=== PATIENT | female | born 1990 | race American Indian/Alaskan Native ===

== ENCOUNTER 2017-01-16 00:27 | Emergency (ER) | payer MEDICAID ==
[2017-01-16 03:59] LABS: Anion Gap 22 mmol/L; BUN/Creatinine Ratio 11.25; Blood Urea Nitrogen 9 mg/dL (7-17); Calcium 9.6 mg/dL (8.4-10.2); Carbon Dioxide 22 mmol/L (22-30); Chloride 104.1 mmol/L (98-107); Glucose 103 mg/dL (65-100); Potassium 4.1 mmol/L (3.6-5.0); Sodium 144 mmol/L (137-145)
[2017-01-16 04:00] LABS: Basophils % (Auto) 1.3 % (0.0-1.8); Hematocrit 42.2 % (30.3-42.9); Hemoglobin 13.8 gm/dl (10.1-14.3); Mean Corpuscular HGB Conc 33 % (30-34); Mean Corpuscular Hemoglobin 29 pg (28-32); Mean Corpuscular Volume 89 fl (79-97); Platelet Count 416 K/mm3 (140-440); Red Blood Count 4.74 M/mm3 (3.65-5.03); White Blood Count 12.6 K/mm3 (4.5-11.0)
[2017-01-16 08:43] LABS: Bacteria,Urine 1+ /HPF (Negative); Bilirubin,Urine NEG (Negative); Blood,Urine SM (Negative); Ketones,Urine NEG (Negative); Leukocyte Esterase,Urine NEG (Negative); Mucus,Urine 3+ /HPF; Nitrite,Urine NEG (Negative); Protein,Urine <15 mg/dL mg/dL (Negative); Urobilinogen,Urine < 2.0 mg/dL (<2.0)
[2017-01-16] MEDS ORDERED: ATIVAN IV ONE ×2 (10:27→11:38)
[2017-01-16] MEDS ORDERED: NACL 0.9% 1000 ML 1,000 ML IV ONE (10:28)
[2017-01-16] MEDS ORDERED: TORADOL IV ONE (10:28)
[2017-01-16] MEDS ORDERED: PHENERGAN PR ONE (10:29)
[2017-01-16] MEDS ORDERED: DILAUDID IV ONE (11:38)
--- NOTE | 2017-01-16 11:48 | Emergency Department Report ---
ED Anxiety HPI - General Chief Complaint: Abdominal Pain Stated Complaint: ANIXETY, VOMITING, HEADACHE Time Seen by Provider: 01/16/17 10:18 Source: patient Mode of arrival: Ambulatory Limitations: No Limitations - History of Present Illness Initial Comments: 26 year old female with a past medical history GERD, bipolar, and anxiety presents to the hospital with complaints of nausea, vomiting, headache 2 days. Patient has been out of her Seroquel and Xanax for the past 4 days. Patient is visiting from [place] because her father is admitted to the hospital. It is time for a refill in her meds however, the pharmacies in [place] would not honor her [place] Medicaid insurance and will not fill her prescription. Her brother is going to bring her Seroquel prescription to her however, not her Xanax because he needs to be picked up from the pharmacy. Patient's having symptoms of a frontal headache that is constant. Moderate to severe in intensity, repeated episodes of nausea and vomiting estimated at greater than 50 episodes in the last 2 days, episodes of shortness of breath/tachypnea with associated tingling to her hands which is typical of her anxiety attacks. No complaints of chest pain, abdominal pain, diarrhea, or fever. Patient has been on Xanax 1 mg twice a day with 2 mg daily at bedtime and Seroquel XL 300 every morning and Seroquel 300 every at bedtime for greater than one year. Patient has never had a discontinuation in her treatment has never experienced withdrawal symptoms - Related Data Home Medications: Previous Rx's Medication Instructions Recorded Last Taken Type ALPRAZolam [Xanax TAB] 1 mg PO BID #28 tab 01/16/17 Unknown Rx HYDROcodone/APAP 5-325 [[place] 1 each PO Q6HR PRN #20 tablet 01/16/17 Unknown Rx 5/325] Promethazine [Phenergan TAB] 25 mg PO Q6HR PRN #30 tab 01/16/17 Unknown Rx Quetiapine Fumarate [SEROquel XR] 300 mg PO QAM #30 tab.er.24h 01/16/17 Unknown Rx Quetiapine Fumarate [Seroquel] 300 mg PO QHS #30 01/16/17 Unknown Rx Allergies/Adverse Reactions: Allergies Allergy/AdvReac Type Severity Reaction Status Date / Time erythromycin base Allergy Angioedema Verified 01/16/17 01:56 morphine Allergy Angioedema Verified 01/16/17 01:57 ondansetron HCl Allergy Angioedema Verified 01/16/17 01:57 [From Zofran (as hydrochloride)] Penicillins Allergy Angioedema Verified 01/16/17 01:57 ED Review of Systems ROS: Stated complaint: ANIXETY, VOMITING, HEADACHE Other details as noted in HPI Comment: All other systems reviewed and negative Other: Constitutional: No fevers chills Eyes: No eye pain visual changes ENT: No ear pain or throat pain Neck: Denies pain Respiratory: Denies cough wheezing Cardiovascular: Denies chest pain GI: Denies abdominal pain : Denies dysuria Musculoskeletal: Denies back pain Skin: Denies rash, lesions, erythema Neurologic: + headache Psychiatric: Denies suicidal ideation, hallucinations ED Past Medical Hx - Past Medical History Previous Medical History?: Yes Hx GERD: Yes Hx Psychiatric Treatment: Yes (Anxiety, panic attack, Bipolar) Additional medical history: Tachycardia, major anxiety, depression, panic attacks, Bipolar - Surgical History Additional Surgical History: C section 2011 - Social History Smoking Status: Unknown if ever smoked Substance Use Type: None - Medications Home Medications: Home Medications Medication Instructions Recorded Confirmed Last Taken Type ALPRAZolam [Xanax TAB] 1 mg PO BID #28 tab 01/16/17 Unknown Rx HYDROcodone/APAP 5-325 [[place] 1 each PO Q6HR PRN #20 tablet 01/16/17 Unknown Rx 5/325] Promethazine [Phenergan TAB] 25 mg PO Q6HR PRN #30 tab 01/16/17 Unknown Rx Quetiapine Fumarate [SEROquel XR] 300 mg PO QAM #30 tab.er.24h 01/16/17 Unknown Rx Quetiapine Fumarate [Seroquel] 300 mg PO QHS #30 01/16/17 Unknown Rx ED Physical Exam - General Limitations: No Limitations - Other Other exam information: General: No limitations, patient is alert in no acute distress Head exam: Atraumatic, normocephalic Eyes exam: Normal appearance ENT: Moist mucous membrane, normal oropharynx Neck exam: Normal inspection, full range of motion Respiratory exam: Clear to auscultation bilateral, no wheezes, rales, crackles Cardiovascular: Normal rate and rhythm Abdomen: Soft, nondistended, and nontender, with normal bowel sounds, no rebound, or guarding Extremity: Full range of motion normal inspection no deformity Back: Normal Inspection, full range of motion, no tenderness Neurologic: Alert, oriented x3, cranial nerves intact, no motor or sensory deficit Psychiatric: Anxious Skin: Warm, dry, intact ED Course Vital Signs 01/16/17 01/16/17 01/16/17 02:02 05:25 08:12 Temperature 98.3 F 98.1 F 98.4 F Pulse Rate 82 85 77 Respiratory 18 16 18 Rate Blood Pressure 146/95 148/96 Blood Pressure 129/96 [Right] O2 Sat by Pulse 99 96 99 Oximetry 01/16/17 01/16/17 01/16/17 09:04 09:31 10:00 Temperature Pulse Rate 85 Respiratory 19 20 Rate Blood Pressure 129/83 Blood Pressure [Right] O2 Sat by Pulse 95 100 Oximetry 01/16/17 01/16/17 01/16/17 10:01 10:31 11:01 Temperature Pulse Rate 88 78 92 H Respiratory 18 12 15 Rate Blood Pressure 129/83 129/83 114/71 Blood Pressure [Right] O2 Sat by Pulse 100 97 Oximetry 01/16/17 01/16/17 01/16/17 11:31 11:45 12:08 Temperature Pulse Rate 96 H 106 H Respiratory 31 H 20 18 Rate Blood Pressure 109/79 118/83 Blood Pressure [Right] O2 Sat by Pulse 100 Oximetry 01/16/17 01/16/17 01/16/17 12:30 13:00 13:30 Temperature Pulse Rate 104 H 99 H 136 H Respiratory 15 15 17 Rate Blood Pressure 117/82 122/86 129/95 Blood Pressure [Right] O2 Sat by Pulse 84 Oximetry - Reevaluation(s) Reevaluation #1: 01/16/17 11:58 Patient received Ativan, Phenergan, Toradol to take complained of feeling anxious and headache. Dilaudid and additional Ativan ordered 01/16/17 14:30 Patient received additional Benadryl for continued headache and symptoms have now improved Reevaluation #2: 01/16/17 14:30 Patient reports feeling better with the treatment. ED Medical Decision Making - Lab Data Result diagrams: 01/16/17 03:14 01/16/17 03:14 Lab Results 01/16/17 01/16/17 01/16/17 Range/Units 03:14 03:14 07:52 WBC 12.6 H (4.5-11.0) K/mm3 RBC 4.74 (3.65-5.03) M/mm3 Hgb 13.8 (10.1-14.3) gm/dl Hct 42.2 (30.3-42.9) % MCV 89 (79-97) fl MCH 29 (28-32) pg MCHC 33 (30-34) % RDW 15.0 (13.2-15.2) % Plt Count 416 (140-440) K/mm3 Lymph % (Auto) 22.7 (13.4-35.0) % [place] % (Auto) 5.8 (0.0-7.3) % Eos % (Auto) 1.0 (0.0-4.3) % Baso % (Auto) 1.3 (0.0-1.8) % Lymph # 2.9 (1.2-5.4) K/mm3 [place] # 0.7 (0.0-0.8) K/mm3 Eos # 0.1 (0.0-0.4) K/mm3 Baso # 0.2 H (0.0-0.1) K/mm3 Seg Neutrophils % 69.2 (40.0-70.0) % Seg Neutrophils # 8.7 H (1.8-7.7) K/mm3 Sodium 144 (137-145) mmol/L Potassium 4.1 (3.6-5.0) mmol/L Chloride 104.1 (98-107) mmol/L Carbon Dioxide 22 (22-30) mmol/L Anion Gap 22 mmol/L BUN 9 (7-17) mg/dL Creatinine 0.8 (0.7-1.2) mg/dL Estimated GFR > 60 ml/min BUN/Creatinine Ratio 11.25 % Glucose 103 H (65-100) mg/dL Calcium 9.6 (8.4-10.2) mg/dL Urine Color Yellow (Yellow) Urine Turbidity Clear (Clear) Urine pH 5.0 (5.0-7.0) Ur Specific [place] 1.026 (1.003-1.030) Urine Protein <15 mg/dl (Negative) mg/dL Urine Glucose (UA) Neg (Negative) mg/dL Urine Ketones Neg (Negative) mg/dL Urine Blood Sm (Negative) Urine Nitrite Neg (Negative) Urine Bilirubin Neg (Negative) Urine Urobilinogen < 2.0 (<2.0) mg/dL Ur Leukocyte Esterase Neg (Negative) Urine WBC (Auto) 1.0 (0.0-6.0) /HPF Urine RBC (Auto) 4.0 (0.0-6.0) /HPF U Epithel Cells (Auto) 1.0 (0-13.0) /HPF Urine Bacteria (Auto) 1+ (Negative) /HPF Urine Mucus 3+ /HPF Urine HCG, Qual (Negative) 01/16/17 Range/Units 11:47 WBC (4.5-11.0) K/mm3 RBC (3.65-5.03) M/mm3 Hgb (10.1-14.3) gm/dl Hct (30.3-42.9) % MCV (79-97) fl MCH (28-32) pg MCHC (30-34) % RDW (13.2-15.2) % Plt Count (140-440) K/mm3 Lymph % (Auto) (13.4-35.0) % [place] % (Auto) (0.0-7.3) % Eos % (Auto) (0.0-4.3) % Baso % (Auto) (0.0-1.8) % Lymph # (1.2-5.4) K/mm3 [place] # (0.0-0.8) K/mm3 Eos # (0.0-0.4) K/mm3 Baso # (0.0-0.1) K/mm3 Seg Neutrophils % (40.0-70.0) % Seg Neutrophils # (1.8-7.7) K/mm3 Sodium (137-145) mmol/L Potassium (3.6-5.0) mmol/L Chloride (98-107) mmol/L Carbon Dioxide (22-30) mmol/L Anion Gap mmol/L BUN (7-17) mg/dL Creatinine (0.7-1.2) mg/dL Estimated GFR ml/min BUN/Creatinine Ratio % Glucose (65-100) mg/dL Calcium (8.4-10.2) mg/dL Urine Color (Yellow) Urine Turbidity (Clear) Urine pH (5.0-7.0) Ur Specific [place] (1.003-1.030) Urine Protein (Negative) mg/dL Urine Glucose (UA) (Negative) mg/dL Urine Ketones (Negative) mg/dL Urine Blood (Negative) Urine Nitrite (Negative) Urine Bilirubin (Negative) Urine Urobilinogen (<2.0) mg/dL Ur Leukocyte Esterase (Negative) Urine WBC (Auto) (0.0-6.0) /HPF Urine RBC (Auto) (0.0-6.0) /HPF U Epithel Cells (Auto) (0-13.0) /HPF Urine Bacteria (Auto) (Negative) /HPF Urine Mucus /HPF Urine HCG, Qual Negative (Negative) - Radiology Data Radiology results: report reviewed (Ct head: naf) - Medical Decision Making Patient will be discharged home with medications for anxiety and headache. Symptoms improved prior to discharge - Differential Diagnosis benzo withdrawal, intracranial hemorrhage, cranial mass, migraine, anxiety Critical Care Time: No Critical care attestation.: If time is entered above; I have spent that time in minutes in the direct care of this critically ill patient, excluding procedure time. ED Disposition Clinical Impression: Benzodiazepine withdrawal, Headache, Vomiting, Anxiety Disposition: DC-01 TO HOME OR SELFCARE Is pt being admited?: No Does the pt Need Aspirin: No Condition: Stable Instructions: Benzodiazepine Abuse (ED), Anxiety (ED), Acute Headache (ED) Additional Instructions: You have been provided a refill of your reported chronic medication. Some of these medications are controlled substances and need to be refilled by your primary care doctor. Follow-up with your physician for further treatment and management. Return if symptoms worsen. Prescriptions: ALPRAZolam [Xanax TAB] 1 mg PO BID #28 tab HYDROcodone/APAP 5-325 [[place]hart 5/325] 1 each PO Q6HR PRN #20 tablet PRN Reason: Pain Promethazine [Phenergan TAB] 25 mg PO Q6HR PRN #30 tab PRN Reason: Nausea Quetiapine Fumarate [Seroquel] 300 mg PO QHS #30 Quetiapine Fumarate [SEROquel XR] 300 mg PO QAM #30 tab.er.24h Referrals: PRIMARY CARE, [Primary Care Provider] - 3-5 Days Time of Disposition: 14:37
--- NOTE | 2017-01-16 12:17 | Cat Scan Report ---
CT HEAD WITHOUT CONTRAST: HISTORY: Headache, nausea and vomiting. Serial contiguous axial images were obtained through the cranium. Intravenous contrast material was not administered. The ventricles are normal in size and appearance. There is no mass effect or midline shift. No areas of abnormally increased or decreased attenuation are seen. No mass lesion is seen. The mastoid air cells and visualized portions of the sinuses are normal. IMPRESSION: Cranial CT scan within normal limits.
[2017-01-16] MEDS ORDERED: BENADRYL IV ONE (12:54)
[2017-01-16 14:23] VITALS: BP 129/95
== END 2017-01-16 14:48 | disposition home or self-care (01) ==
LOC: ED 00:27
DX: F19.939 Other psychoactive substance use, unspecified with withdrawal, unspecified (principal); R51 Headache; R11.2 Nausea with vomiting, unspecified; F41.9 Anxiety disorder, unspecified; F31.9 Bipolar disorder, unspecified; K21.9 Gastro-esophageal reflux disease without esophagitis
CPT/HCPCS: 36415; 70450; 80048; 81001; 81025; 85025; 96361; 96374; 96375; 96376; 99284; J1170; J1200; J1885; J2060; J7030

== ENCOUNTER 2017-05-26 13:34 | Emergency (ER) | payer MEDICAID ==
[2017-05-26 14:48] LABS: Basophils % (Auto) 0.5 % (0.0-1.8); Eosinophils % (Auto) 0.3 % (0.0-4.3); Hematocrit 41.6 % (30.3-42.9); Hemoglobin 13.8 gm/dl (10.1-14.3); Mean Corpuscular HGB Conc 33 % (30-34); Mean Corpuscular Hemoglobin 29 pg (28-32); Mean Corpuscular Volume 89 fl (79-97); Platelet Count 500 K/mm3 (140-440); Red Blood Count 4.68 M/mm3 (3.65-5.03); Red Cell Distribution Width 15.5 % (13.2-15.2); White Blood Count 12.6 K/mm3 (4.5-11.0)
[2017-05-26 15:04] LABS: Alanine Aminotransferase 16 units/L (7-56); Albumin 4.5 g/dL (3.9-5); Albumin/Globulin Ratio 1.2 %; Alkaline Phosphatase 97 units/L (35-129); Anion Gap 20 mmol/L; BUN/Creatinine Ratio 15; Blood Urea Nitrogen 12 mg/dL (7-17); Calcium 9.8 mg/dL (8.4-10.2); Carbon Dioxide 24 mmol/L (22-30); Chloride 102.2 mmol/L (98-107); Glucose 109 mg/dL (65-100); Lipase 13 units/L (13-60); Potassium 3.8 mmol/L (3.6-5.0); Sodium 142 mmol/L (137-145); Total Protein 8.3 g/dL (6.3-8.2)
[2017-05-26 19:39] LABS: Bilirubin,Urine NEG (Negative); Blood,Urine NEG (Negative); Ketones,Urine 80 mg/dL (Negative); Leukocyte Esterase,Urine NEG (Negative); Mucus,Urine 3+ /HPF; Nitrite,Urine NEG (Negative); Urobilinogen,Urine < 2.0 mg/dL (<2.0)
[2017-05-26] MEDS ORDERED: PHENERGAN PR ONE (23:47)
[2017-05-26] MEDS ORDERED: ATIVAN IM ONE (23:47)
[2017-05-27 01:29] VITALS: BP 135/101
[2017-05-27] MEDS ORDERED: XANAX PO ONE (02:34)
[2017-05-27] MEDS ORDERED: NACL 0.9% 1000 ML 1,000 ML IV ONE (02:34)
--- NOTE | 2017-05-27 02:42 | Emergency Department Report ---
ED N/V/D HPI - General Chief complaint: Chest Pain Stated complaint: NAUSEA/VOMITING Time Seen by Provider: 05/27/17 02:32 Source: patient Mode of arrival: Ambulatory Limitations: No Limitations - History of Present Illness Initial comments: 26YO FEMALE WHO RAN OUT OF HER MEDICATION 6-7 DAYS AGO. PT HAS BEEN CHRONICALLY ON SEROQUEL AND XANAX AND MOVE TO [facility] WITHOUT HER MEDICATION. SHE EXPERIENCED MULTIPLE EPISODES OF NAUSEA AND VOMITING AND THUS HAS EPIGASTRIC PAIN. SHE HAD AN ACUTE ANXIETY AND PANIC ATTACKS WHILE HE ACCORDING TO THE HER . THESE WERE NOT WITNESSED BY ANY STAFF MEMBER. MD complaint: nausea, vomiting, abdominal pain, other (CHEST PAIN) -: Gradual Description of Vomiting: food contents Description of Diarrhea: other (NO DIARRHEA) Location: epigastric Radiation: none Pain Scale: 2 Quality: cramping - Related Data Previous Rx's Medication Instructions Recorded Last Taken Type HYDROcodone/APAP 5-325 [[place] 1 each PO Q6HR PRN #20 tablet 01/16/17 Unknown Rx 5/325] Quetiapine Fumarate [SEROquel XR] 300 mg PO QAM #30 tab.er.24h 01/16/17 Unknown Rx Quetiapine Fumarate [Seroquel] 300 mg PO QHS #30 01/16/17 Unknown Rx ALPRAZolam [Xanax TAB] 1 mg PO BID #28 tab 05/27/17 Unknown Rx Promethazine [Phenergan TAB] 25 mg PO Q6HR PRN #30 tab 05/27/17 Unknown Rx Quetiapine Fumarate (Nf) [SEROquel 300 mg PO QDAY #20 tab.er.24h 05/27/17 Unknown Rx XR] Quetiapine Fumarate [Seroquel] 300 mg PO QHS #10 tablet 05/27/17 Unknown Rx Allergies Allergy/AdvReac Type Severity Reaction Status Date / Time erythromycin base Allergy Angioedema Verified 01/16/17 01:56 morphine Allergy Angioedema Verified 01/16/17 01:57 ondansetron HCl Allergy Angioedema Verified 01/16/17 01:57 [From Zofran (as hydrochloride)] Penicillins Allergy Angioedema Verified 01/16/17 01:57 ED Review of Systems ROS: Stated complaint: NAUSEA/VOMITING Other details as noted in HPI ED Past Medical Hx - Past Medical History Previous Medical History?: Yes Hx GERD: Yes Hx Psychiatric Treatment: Yes (Anxiety, panic attack, Bipolar) Additional medical history: Tachycardia, major anxiety, depression, panic attacks, Bipolar - Surgical History Past Surgical History?: Yes Additional Surgical History: C section 2012 - Social History Smoking Status: Current Every Day Smoker Substance Use Type: Marijuana - Medications Home Medications: Home Medications Medication Instructions Recorded Confirmed Last Taken Type HYDROcodone/APAP 5-325 [[place] 1 each PO Q6HR PRN #20 tablet 01/16/17 Unknown Rx 5/325] Quetiapine Fumarate [SEROquel XR] 300 mg PO QAM #30 tab.er.24h 01/16/17 Unknown Rx Quetiapine Fumarate [Seroquel] 300 mg PO QHS #30 01/16/17 Unknown Rx ALPRAZolam [Xanax TAB] 1 mg PO BID #28 tab 05/27/17 Unknown Rx Promethazine [Phenergan TAB] 25 mg PO Q6HR PRN #30 tab 05/27/17 Unknown Rx Quetiapine Fumarate (Nf) [SEROquel 300 mg PO QDAY #20 tab.er.24h 05/27/17 Unknown Rx XR] Quetiapine Fumarate [Seroquel] 300 mg PO QHS #10 tablet 05/27/17 Unknown Rx ED Physical Exam - General Limitations: No Limitations ED Course Vital Signs 05/26/17 05/26/17 05/26/17 14:10 17:15 23:07 Temperature 97.9 F 98.0 F Pulse Rate 77 94 H 97 H Respiratory 18 20 22 Rate Blood Pressure 110/82 124/88 O2 Sat by Pulse 98 98 99 Oximetry 05/26/17 05/26/17 05/26/17 23:16 23:30 23:46 Temperature Pulse Rate 95 H 83 105 H Respiratory 27 H 14 22 Rate Blood Pressure 132/84 147/94 147/94 O2 Sat by Pulse 100 99 65 L Oximetry 05/27/17 05/27/17 05/27/17 00:00 00:16 00:30 Temperature Pulse Rate 93 H 78 103 H Respiratory 13 13 14 Rate Blood Pressure 137/94 137/94 135/101 O2 Sat by Pulse 97 96 98 Oximetry 05/27/17 01:21 Temperature Pulse Rate Respiratory Rate Blood Pressure 135/101 O2 Sat by Pulse 90 Oximetry ED Medical Decision Making - Lab Data Result diagrams: 05/26/17 14:29 05/26/17 14:29 - EKG Data EKG shows normal: sinus rhythm, axis, intervals, QRS complexes Rate: normal - Radiology Data Radiology results: pending, image reviewed interpreted by me: NO FREE AIR ,LARGE STOOL RETAINED Critical care attestation.: If time is entered above; I have spent that time in minutes in the direct care of this critically ill patient, excluding procedure time. ED Disposition Clinical Impression: Abdominal pain Qualifiers: Abdominal location: epigastric Qualified Code(s): R10.13 - Epigastric pain Nausea & vomiting Qualifiers: Vomiting type: unspecified Vomiting Intractability: non-intractable Qualified Code(s): R11.2 - Nausea with vomiting, unspecified Disposition: TO HOME OR SELFCARE Is pt being admited?: No Does the pt Need Aspirin: No Condition: Stable Instructions: Abdominal Pain (ED), Acute Nausea and Vomiting (ED) Prescriptions: Quetiapine Fumarate [Seroquel] 300 mg PO QHS #10 tablet ALPRAZolam [Xanax TAB] 1 mg PO BID #28 tab Promethazine [Phenergan TAB] 25 mg PO Q6HR PRN #30 tab PRN Reason: Nausea Quetiapine Fumarate (Nf) [SEROquel XR] 300 mg PO QDAY #20 tab.er.24h Referrals: PRIMARY CARE, [Primary Care Provider] - 3-5 Days Time of Disposition: 04:23
[2017-05-27] MEDS ORDERED: PHENERGAN PO ONE (03:16)
[2017-05-27] MEDS ORDERED: TORADOL IV ONE (03:19)
[2017-05-27] MEDS ORDERED: TORADOL ONE (03:23)
--- NOTE | 2017-05-27 07:20 | XRay Report ---
Abdominal series: History: Abdominal pain nausea and vomiting. Findings: No acute cardiopulmonary findings. No free intraperitoneal air. No bowel distention or wall thickening. No radiopaque calculus abnormal calcification. Impression: Essentially negative abdomen
== END 2017-05-27 04:50 | disposition home or self-care (01) ==
LOC: ED 13:34
DX: R10.13 Epigastric pain (principal); R11.2 Nausea with vomiting, unspecified; K21.9 Gastro-esophageal reflux disease without esophagitis; F31.9 Bipolar disorder, unspecified; F17.200 Nicotine dependence, unspecified, uncomplicated; F12.10 Cannabis abuse, uncomplicated; Z88.0 Allergy status to penicillin; Z88.1 Allergy status to other antibiotic agents; Z88.5 Allergy status to narcotic agent
CPT/HCPCS: 36415; 74022; 80053; 81001; 83690; 84484; 84703; 85025; 93005; 93010; 96361; 96372; 96374; 99284; J1885; J2060; J7030; Q0169

== ENCOUNTER 2019-02-28 21:45 | Emergency (ER) | payer SELFPAY ==
--- NOTE | 2019-02-28 21:58 | Event Note ---
ED Screening Note Date of service: 02/28/19 Time: 21:56 ED Screening Note: 28 y/o female comes in for nausea and vomiting times 1 week. She reports that she has been off psych meds for 2 weeks. LMP unknown. This initial assessment/diagnostic orders/clinical plan/treatment(s) is/are subject to change based on patients health status, clinical progression and re- assessment by fellow clinical providers in the ED. Further treatment and workup at subsequent clinical providers discretion. Patient/guardian urged not to elope from the ED as their condition may be serious if not clinically assessed and managed. Initial orders include:
[2019-02-28 21:59] VITALS: BP 119/83
[2019-02-28 22:33] LABS: Basophils % (Auto) 0.4 % (0.0-1.8); Eosinophils # (Auto) 0.2 K/mm3 (0.0-0.4); Eosinophils % (Auto) 2.2 % (0.0-4.3); Hematocrit 44.4 % (30.3-42.9); Hemoglobin 14.7 gm/dl (10.1-14.3); Lymphocytes # (Auto) 3.8 K/mm3 (1.2-5.4); Lymphocytes % (Auto) 35.1 % (13.4-35.0); Mean Corpuscular HGB Conc 33 % (30-34); Mean Corpuscular Volume 93 fl (79-97); Monocytes # (Auto) 0.6 K/mm3 (0.0-0.8); Monocytes % (Auto) 5.5 % (0.0-7.3); Platelet Count 445 K/mm3 (140-440); Red Blood Count 4.77 M/mm3 (3.65-5.03); Red Cell Distribution Width 14.8 % (13.2-15.2)
[2019-02-28 22:56] LABS: BUN/Creatinine Ratio 11; Blood Urea Nitrogen 9 mg/dL (7-17); Calcium 9.8 mg/dL (8.4-10.2); Hemolysis Index 24
[2019-02-28] MEDS ORDERED: NACL 0.9% 1000 ML 1,000 ML IV ONE (23:06)
[2019-02-28] MEDS ORDERED: REGLAN IV ONE (23:06)
--- NOTE | 2019-02-28 23:13 | Emergency Department Report ---
ED N/V/D HPI - General Chief complaint: Nausea/Vomiting/Diarrhea Stated complaint: VOMITING/MED REFILL Time Seen by Provider: 02/28/19 22:20 Source: patient Mode of arrival: Ambulatory Limitations: No Limitations - History of Present Illness Initial comments: This is a 28-year-old female nontoxic, well nourished in appearance, no acute signs of distress presents to the ED with c/o of nausea and vomiting 1 week. Patient describes vomiting as food content. Patient stated that she is out of her Seroquel due to losing her prescription. She stated that she believes this is the reason why she is having nausea vomiting. Patient denies any abdominal pain, chest pain, short of breath, fever, chills, headache, stiff neck, numbness or tingling. Patient denies any diarrhea or constipation. Patient denies any recent travels. Patient stated allergies to erythromycin, morphine, Zofran and penicillin. MD complaint: nausea, vomiting -: week(s) (1) Description of Vomiting: food contents Associated Abdominal Pain: No Pain Scale: 0 Improves with: none Worsens with: none Associated Symptoms: denies other symptoms, nausea/vomiting. denies: myalgias, chest pain, cough, diaphoresis, fever/chills, headaches, loss of appetite, malaise, rash, dysuria, shortness of breath, syncope, weakness - Related Data Previous Rx's Medication Instructions Recorded Last Taken Type HYDROcodone/APAP 5-325 [Warren 1 each PO Q6HR PRN #20 tablet 01/16/17 Unknown Rx 5/325] Quetiapine Fumarate [SEROquel XR] 300 mg PO QAM #30 tab.er.24h 01/16/17 Unknown Rx Quetiapine Fumarate [Seroquel] 300 mg PO QHS #30 01/16/17 Unknown Rx ALPRAZolam [Xanax TAB] 1 mg PO BID #28 tab 05/27/17 Unknown Rx Promethazine [Phenergan] 25 mg PO Q6HR PRN #30 tab 05/27/17 Unknown Rx Quetiapine Fumarate (Nf) [SEROquel 300 mg PO QDAY #20 tab.er.24h 05/27/17 Unknown Rx XR] Quetiapine Fumarate [Seroquel] 300 mg PO QHS #10 tablet 05/27/17 Unknown Rx Metoclopramide [Reglan] 10 mg PO TID PRN #30 tab 02/28/19 Unknown Rx Quetiapine Fumarate [SEROquel Xr] 300 mg PO QAM #30 tab.er.24h 02/28/19 Unknown Rx Quetiapine Fumarate [SEROquel] 300 mg PO QHS #30 tablet 02/28/19 Unknown Rx Allergies Allergy/AdvReac Type Severity Reaction Status Date / Time erythromycin base Allergy Angioedema Verified 01/16/17 01:56 morphine Allergy Angioedema Verified 01/16/17 01:57 ondansetron HCl Allergy Angioedema Verified 01/16/17 01:57 [From Zofran (as hydrochloride)] Penicillins Allergy Angioedema Verified 01/16/17 01:57 ED Review of Systems ROS: Stated complaint: VOMITING/MED REFILL Other details as noted in HPI Constitutional: denies: chills, fever Eyes: denies: eye pain, eye discharge, vision change ENT: denies: ear pain, throat pain Respiratory: denies: cough, shortness of breath, wheezing Cardiovascular: denies: chest pain, palpitations Endocrine: no symptoms reported Gastrointestinal: nausea, vomiting. denies: abdominal pain, diarrhea Genitourinary: denies: urgency, dysuria, discharge Musculoskeletal: denies: back pain, joint swelling, arthralgia Skin: denies: rash, lesions Neurological: denies: headache, weakness, paresthesias Psychiatric: denies: anxiety, depression Hematological/Lymphatic: denies: easy bleeding, easy bruising ED Past Medical Hx - Past Medical History Previous Medical History?: Yes Hx GERD: Yes Hx Psychiatric Treatment: Yes (Anxiety, panic attack, Bipolar) Additional medical history: Tachycardia, major anxiety, depression, panic attacks, Bipolar - Surgical History Past Surgical History?: Yes Additional Surgical History: C section 2012 - Social History Smoking Status: Never Smoker Substance Use Type: Marijuana - Medications Home Medications: Home Medications Medication Instructions Recorded Confirmed Last Taken Type HYDROcodone/APAP 5-325 [Warren 1 each PO Q6HR PRN #20 tablet 01/16/17 Unknown Rx 5/325] Quetiapine Fumarate [SEROquel XR] 300 mg PO QAM #30 tab.er.24h 01/16/17 Unknown Rx Quetiapine Fumarate [Seroquel] 300 mg PO QHS #30 01/16/17 Unknown Rx ALPRAZolam [Xanax TAB] 1 mg PO BID #28 tab 05/27/17 Unknown Rx Promethazine [Phenergan] 25 mg PO Q6HR PRN #30 tab 05/27/17 Unknown Rx Quetiapine Fumarate (Nf) [SEROquel 300 mg PO QDAY #20 tab.er.24h 05/27/17 Unknown Rx XR] Quetiapine Fumarate [Seroquel] 300 mg PO QHS #10 tablet 05/27/17 Unknown Rx Metoclopramide [Reglan] 10 mg PO TID PRN #30 tab 02/28/19 Unknown Rx Quetiapine Fumarate [SEROquel Xr] 300 mg PO QAM #30 tab.er.24h 02/28/19 Unknown Rx Quetiapine Fumarate [SEROquel] 300 mg PO QHS #30 tablet 02/28/19 Unknown Rx ED Physical Exam - General Limitations: No Limitations General appearance: alert, in no apparent distress - Head Head exam: Present: atraumatic, normocephalic - Neck Neck exam: Present: normal inspection, full ROM. Absent: tenderness, meningis mus, lymphadenopathy - Respiratory Respiratory exam: Present: normal lung sounds bilaterally. Absent: respiratory distress, wheezes, rales, rhonchi, stridor, chest wall tenderness, accessory muscle use, decreased breath sounds, prolonged expiratory - Cardiovascular Cardiovascular Exam: Present: regular rate, normal rhythm, normal heart sounds. Absent: bradycardia, tachycardia, irregular rhythm, systolic murmur, diastolic murmur, rubs, gallop - GI/Abdominal GI/Abdominal exam: Present: soft, normal bowel sounds. Absent: distended, tenderness, guarding, rebound, rigid, diminished bowel sounds - Extremities Exam Extremities exam: Present: normal inspection, full ROM - Back Exam Back exam: Present: normal inspection, full ROM. Absent: tenderness, CVA tenderness (R), CVA tenderness (L), muscle spasm, paraspinal tenderness, vertebral tenderness, rash noted - Neurological Exam Neurological exam: Present: alert, oriented X3, normal gait - Psychiatric Psychiatric exam: Present: normal affect, normal mood. Absent: depressed, agitated, anxious, flat affect, manic, homicidal ideation, suicidal ideation - Skin Skin exam: Present: warm, dry, intact, normal color. Absent: rash ED Course Vital Signs 02/28/19 21:56 Temperature 98.0 F Pulse Rate 89 Respiratory 18 Rate Blood Pressure 119/83 O2 Sat by Pulse 97 Oximetry - Reevaluation(s) Reevaluation #1: 02/28/19 23:11 Patient is speaking in full sentences with no signs of distress noted. ED Medical Decision Making - Lab Data Result diagrams: 02/28/19 22:03 02/28/19 22:03 - Medical Decision Making This is a 28-year-old female that presents with nausea and vomiting. Patient is stable and was examined by me. There is no abdominal tenderness. Negative signs of symptoms of appendicitis. Labs obtained. UA obtained. Vital signs are stable prior to discharge. Patient received Phenergan and 1L Normal saline in the ED which patient stated symptoms has resovled and subsided. A by mouth challenge has been obtained and patient tolerated well with no nausea vomiting. I will refill patients medications of Seroquel. Patient stated takes 300 mg at night and XR in the morning. Patient was also instructed to Follow-up with a primary care doctor in 3-5 days or if symptoms worsen and continue return to emergency room as soon as possible. At time of discharge, the patient does not seem toxic or ill in appearance. No acute signs of distress noted. Patient agrees to discharge treatment plan of care. No further questions noted by the patient. Critical care attestation.: If time is entered above; I have spent that time in minutes in the direct care of this critically ill patient, excluding procedure time. ED Disposition Clinical Impression: Medication refill Nausea & vomiting Qualifiers: Vomiting type: unspecified Vomiting Intractability: non-intractable Qualified Code(s): R11.2 - Nausea with vomiting, unspecified Disposition: DC-01 TO HOME OR SELFCARE Is pt being admited?: No Does the pt Need Aspirin: No Condition: Stable Instructions: Quetiapine (By mouth), Acute Nausea and Vomiting (ED) Additional Instructions: Follow-up with a primary care doctor in 3-5 days or if symptoms worsen and continue return to emergency room as soon as possible. Prescriptions: Quetiapine Fumarate [SEROquel] 300 mg PO QHS #30 tablet Metoclopramide [Reglan] 10 mg PO TID PRN #30 tab PRN Reason: Nausea Quetiapine Fumarate [SEROquel Xr] 300 mg PO QAM #30 tab.er.24h [facility] [Primary Care Provider] - 3-5 Days PRIMARY CAREMD [Referring] - 3-5 Days HIREN NERI MD [Staff Physician] - 3-5 Days [facility] [Outside] - 3-5 Days [facility] [Outside] - 3-5 Days Forms: Work/School Release Form(ED)
[2019-02-28] MEDS ORDERED: PHENERGAN PO ONE (23:56)
[2019-02-28] MEDS ORDERED: PHENERGAN ONE (23:59)
[2019-03-01] MEDS ORDERED: TORADOL IV ONE
[2019-03-01 00:03] LABS: Bilirubin,Urine NEG (Negative); Blood,Urine NEG (Negative); Color,Urine Yellow (Yellow); Mucus,Urine 2+ /HPF; Protein,Urine <15 mg/dL mg/dL (Negative); Urobilinogen,Urine < 2.0 mg/dL (<2.0)
[2019-03-01 00:05] LABS: Alanine Aminotransferase 13 units/L (7-56); Albumin 4.5 g/dL (3.9-5)
[2019-03-01 00:08] LABS: HCG Qualitative,Urine Negative (Negative)
[2019-03-01 00:14] LABS: Bilirubin,Direct < 0.2 mg/dL (0-0.2)
[2019-03-01] MEDS ORDERED: COMPAZINE IV ONE (00:26)
--- NOTE | 2019-03-01 01:35 | XRay Report ---
ABDOMEN 3 VIEW(S) INDICATION: Nausea with vomiting. COMPARISON: None available. FINDINGS: Bowel gas pattern: Within normal limits. No dilated loops of large or small bowel. Free air: None. Calcified gallstones: None seen. Calcified urinary tract calculi: None seen. Chest: No acute findings. Additional Findings: None. Skeletal structures: No acute abnormality. IMPRESSION: No acute findings. Signer Name: Mynor Brown MD Signed: 03/01/2019 1:31 AM Workstation Name: [id number]
== END 2019-03-01 02:28 | disposition home or self-care (01) ==
LOC: ED 21:45
DX: R11.2 Nausea with vomiting, unspecified (principal); Z76.0 Encounter for issue of repeat prescription; K21.9 Gastro-esophageal reflux disease without esophagitis; F31.9 Bipolar disorder, unspecified; F41.0 Panic disorder [episodic paroxysmal anxiety]; F12.10 Cannabis abuse, uncomplicated; Z79.899 Other long term (current) drug therapy; Z88.0 Allergy status to penicillin; Z88.6 Allergy status to analgesic agent; Z88.1 Allergy status to other antibiotic agents
CPT/HCPCS: 36415; 74022; 80048; 80076; 81001; 81025; 83690; 84703; 85025; 96361; 96374; 96375; 99284; J0780; J1885; J7030; Q0169; J2765

== ENCOUNTER 2019-03-03 01:11 | Emergency (ER) | payer SELFPAY ==
[2019-03-03 02:43] LABS: Alanine Aminotransferase 17 units/L (7-56); BUN/Creatinine Ratio 10; Blood Urea Nitrogen 9 mg/dL (7-17); Calcium 10.7 mg/dL (8.4-10.2); Hemolysis Index 17
[2019-03-03 03:54] LABS: Hematocrit 48.7 % (30.3-42.9); Hemoglobin 15.8 gm/dl (10.1-14.3); Mean Corpuscular HGB Conc 33 % (30-34); Mean Corpuscular Volume 94 fl (79-97); Platelet Count 498 K/mm3 (140-440); Red Blood Count 5.18 M/mm3 (3.65-5.03); Red Cell Distribution Width 14.9 % (13.2-15.2)
[2019-03-03 04:45] LABS: Basophils % (Auto) 0.3 % (0.0-1.8); Eosinophils % (Auto) 0.2 % (0.0-4.3); Lymphocytes # (Auto) 3.1 K/mm3 (1.2-5.4); Lymphocytes % (Auto) 17.5 % (13.4-35.0); Monocytes % (Auto) 5.4 % (0.0-7.3)
[2019-03-03] MEDS ORDERED: NACL 0.9% 1000 ML IV ONE (04:45)
[2019-03-03] MEDS ORDERED: BENADRYL IV STA (05:04)
[2019-03-03] MEDS ORDERED: REGLAN IV STA (05:04)
--- NOTE | 2019-03-03 05:41 | Emergency Department Report ---
ED N/V/D HPI - General Chief complaint: Abdominal Pain Stated complaint: EMESIS/ANXIETY Time Seen by Provider: 03/03/19 04:08 Source: patient Mode of arrival: Ambulatory Limitations: No Limitations - History of Present Illness Initial comments: 28-year-old female with past medical history of bipolar disorder on Seroquel reports been out of her medication for the last couple weeks and just restarted it last week. States that when she runs out of her medication. She gets into bouts of nausea and vomiting and stomach pain. She also takes benzos. A which she has been out of his well. That, however, was not restarted. She reports no diarrhea, no fever, chills, sweats no foreign travel. States she just needs to get her medications back in the system to stop this cyclic vomiting syndrome. States that Phenergan and Benadryl. Also helps MD complaint: nausea, vomiting -: Gradual, This evening Associated Abdominal Pain: No Radiation: none Severity: mild Quality: aching, dull Consistency: constant, intermittent Improves with: none Worsens with: none Associated Symptoms: nausea/vomiting. denies: chest pain, cough, diaphoresis, fever/chills, headaches, rash, dysuria, shortness of breath - Related Data Previous Rx's Medication Instructions Recorded Last Taken Type HYDROcodone/APAP 5-325 [Sebastian 1 each PO Q6HR PRN #20 tablet 01/16/17 Unknown Rx 5/325] Quetiapine Fumarate [SEROquel XR] 300 mg PO QAM #30 tab.er.24h 01/16/17 Unknown Rx Quetiapine Fumarate [Seroquel] 300 mg PO QHS #30 01/16/17 Unknown Rx ALPRAZolam [Xanax TAB] 1 mg PO BID #28 tab 05/27/17 Unknown Rx Promethazine [Phenergan] 25 mg PO Q6HR PRN #30 tab 05/27/17 Unknown Rx Quetiapine Fumarate (Nf) [SEROquel 300 mg PO QDAY #20 tab.er.24h 05/27/17 Unknown Rx XR] Quetiapine Fumarate [Seroquel] 300 mg PO QHS #10 tablet 05/27/17 Unknown Rx Metoclopramide [Reglan] 10 mg PO TID PRN #30 tab 02/28/19 Unknown Rx Quetiapine Fumarate [SEROquel Xr] 300 mg PO QAM #30 tab.er.24h 02/28/19 Unknown Rx Quetiapine Fumarate [SEROquel] 300 mg PO QHS #30 tablet 02/28/19 Unknown Rx Allergies Allergy/AdvReac Type Severity Reaction Status Date / Time erythromycin base Allergy Angioedema Verified 03/03/19 01:14 morphine Allergy Angioedema Verified 03/03/19 01:14 ondansetron HCl Allergy Angioedema Verified 03/03/19 01:14 [From Zofran (as hydrochloride)] Penicillins Allergy Angioedema Verified 03/03/19 01:14 ED Review of Systems ROS: Stated complaint: EMESIS/ANXIETY Other details as noted in HPI Comment: All other systems reviewed and negative ED Past Medical Hx - Past Medical History Previous Medical History?: Yes Hx GERD: Yes Hx Psychiatric Treatment: Yes (Anxiety, panic attack, Bipolar) Additional medical history: Tachycardia, major anxiety, depression, panic attacks, Bipolar - Surgical History Past Surgical History?: Yes Additional Surgical History: C section 2011 - Social History Smoking Status: Never Smoker Substance Use Type: Marijuana - Medications Home Medications: Home Medications Medication Instructions Recorded Confirmed Last Taken Type HYDROcodone/APAP 5-325 [Sebastian 1 each PO Q6HR PRN #20 tablet 01/16/17 Unknown Rx 5/325] Quetiapine Fumarate [SEROquel XR] 300 mg PO QAM #30 tab.er.24h 01/16/17 Unknown Rx Quetiapine Fumarate [Seroquel] 300 mg PO QHS #30 01/16/17 Unknown Rx ALPRAZolam [Xanax TAB] 1 mg PO BID #28 tab 05/27/17 Unknown Rx Promethazine [Phenergan] 25 mg PO Q6HR PRN #30 tab 05/27/17 Unknown Rx Quetiapine Fumarate (Nf) [SEROquel 300 mg PO QDAY #20 tab.er.24h 05/27/17 Unknown Rx XR] Quetiapine Fumarate [Seroquel] 300 mg PO QHS #10 tablet 05/27/17 Unknown Rx Metoclopramide [Reglan] 10 mg PO TID PRN #30 tab 02/28/19 Unknown Rx Quetiapine Fumarate [SEROquel Xr] 300 mg PO QAM #30 tab.er.24h 02/28/19 Unknown Rx Quetiapine Fumarate [SEROquel] 300 mg PO QHS #30 tablet 02/28/19 Unknown Rx ED Physical Exam - General Limitations: No Limitations General appearance: alert, in no apparent distress - Head Head exam: Present: atraumatic, normocephalic - Eye Eye exam: Present: normal appearance, PERRL, EOMI Pupils: Present: normal accommodation - ENT ENT exam: Present: normal exam, normal orophraynx, mucous membranes moist - Neck Neck exam: Present: normal inspection - Respiratory Respiratory exam: Present: normal lung sounds bilaterally. Absent: respiratory distress, rales, rhonchi, stridor, accessory muscle use, decreased breath sounds, prolonged expiratory - Cardiovascular Cardiovascular Exam: Present: regular rate, normal rhythm. Absent: systolic murmur, diastolic murmur, rubs, gallop - GI/Abdominal GI/Abdominal exam: Present: soft, tenderness, normal bowel sounds. Absent: rebound, organomegaly, mass, bruit, pulsatile mass - Extremities Exam Extremities exam: Present: normal inspection - Back Exam Back exam: Present: normal inspection - Neurological Exam Neurological exam: Present: alert, oriented X3, CN II-XII intact. Absent: motor sensory deficit - Psychiatric Psychiatric exam: Present: normal affect, normal mood - Skin Skin exam: Present: warm, dry, intact, normal color. Absent: rash ED Course Vital Signs 03/03/19 01:47 Temperature 97.9 F Pulse Rate 80 Respiratory 16 Rate Blood Pressure 110/75 ED Medical Decision Making - Lab Data Result diagrams: 03/03/19 02:07 03/03/19 02:07 Critical care attestation.: If time is entered above; I have spent that time in minutes in the direct care of this critically ill patient, excluding procedure time. ED Disposition Condition: Stable Instructions: Abdominal Pain (ED)
[2019-03-03] MEDS ORDERED: NACL 0.9% 1000 ML 1,000 ML ONE (05:45)
[2019-03-03] MEDS ORDERED: PHENERGAN PO STA (07:00)
[2019-03-03] MEDS ORDERED: GEODON IM ONE (07:04)
[2019-03-03] MEDS ORDERED: WATER FOR INJ Sterile (PF) 10 ML ONE (07:32)
[2019-03-03 07:58] VITALS: BP 116/81
== END 2019-03-03 07:56 | disposition home or self-care (01) ==
LOC: ED 01:11
DX: R11.2 Nausea with vomiting, unspecified (principal); R10.9 Unspecified abdominal pain; K21.9 Gastro-esophageal reflux disease without esophagitis; F31.9 Bipolar disorder, unspecified
CPT/HCPCS: 36415; 80053; 84703; 85007; 85025; 96372; 96374; 96375; 99283; J1200; J2765; J3486; J7030; Q0169